=== PATIENT | male | born 1955 | race Caucasian/White ===

== ENCOUNTER 2018-02-19 19:33 | Emergency (ER) | payer OTHER ==
[2018-02-19 19:52] VITALS: BP 122/77
[2018-02-19] MEDS ORDERED: DIAZEPAM 5 MG TAB PO ONE (19:57)
[2018-02-19] MEDS ORDERED: LIDOCAINE 4%/MENTHOL 1% PATCH TD ONE (19:58)
[2018-02-19] MEDS ORDERED: KETOROLAC 30 MG/1 ML SDV IM ONE (19:58)
--- NOTE | 2018-02-19 20:16 | EDPHY ---
H & P Time Seen by Provider: 02/19/18 19:41 HPI/ROS: 62 yo M presents c/o left lumbar back pain that began after trying to move a heavy rock in his yard. No numbness or tingling in extremities, no loss of bowel or bladder control. No fever or chills. Review of systems As per HPI General no fever no chills no weakness HEENT no eye pain no eye discharge. No eye redness, no sore throat Respiratory no cough, no shortness of breath Cardiac no chest pain, no peripheral edema GI no abdominal pain, no diarrhea, no constipation, no nausea, no vomiting no flank pain, no hematuria, no dysuria Musculoskeletal no myalgias, no joint pain, positive back pain Heme no easy bruising, no easy bleeding Endo no polyuria, no polydipsia Skin no rashes, no pruritus Neuro no syncope, no dizziness, no headaches Psych is no suicidal ideation, no homicidal ideation Past Medical/Surgical History: prior hx of back spasm Social History: denies alcohol or drug use Smoking Status: Never smoked Physical Exam: 62 yo M alert and oriented seated on the side of the bed with left lumbar back spasm non toxic appearance, afebrile at,nc neck supple no jvd lungs cta bilat heart rrr abd nabs soft nt back pos left lumbar back spasm,, no midline tenderness, no stepoffs, no ecchymoses,no rash neg slr dtrs present bilat knees able to walk on tiptoes and heels Constitutional: Initial Vital Signs Temperature (C) 36.5 C 02/19/18 19:46 Heart Rate 60 02/19/18 19:46 Respiratory Rate 20 02/19/18 19:46 Blood Pressure 122/77 H 02/19/18 19:46 O2 Sat (%) 96 02/19/18 19:46 O2 Delivery Mode Room Air Allergies/Adverse Reactions: No Known Allergies Allergy (Verified 02/19/18 19:45) Home Medications: Medication Instructions Recorded Diazepam [Valium 5 MG (*)] 5 mg PO TID PRN #15 tab 02/19/18 Lidocaine [Lidoderm] 1 each TP DAILY #14 adh..patch 02/19/18 traMADol [Ultram 50 mg (*)] 50 mg PO Q6 PRN #20 tab 02/19/18 Medical Decision Making ED Course/Re-evaluation: pt seen and evaluated for severe back muscle spasm after lifting heavy rock in yard. given diazepam 10 mg po tordol 60 mg IM and lidoderm patch pt with some relief , requesting discharge oracio to go to pharmacy Imp back muscle spasm plan discharge home rx diazepam 5 mg po tid #15 rx tramadol 50 mg q6 prn pain #16 rx lidoderm patches f/u pcp Differential Diagnosis: Differential diagnosis considered but not limited to: Lumbar muscle spasm, lumbar disc herniation - Data Points Medications Given: Discontinued Medications Diazepam (Valium) 10 mg PO EDNOW ONE Stop: 02/19/18 19:58 Last Admin: 02/19/18 20:04 Dose: 10 mg Ketorolac Tromethamine (Toradol) 60 mg IM EDNOW ONE Stop: 02/19/18 19:59 Last Admin: 02/19/18 20:07 Dose: 60 mg Miscellaneous Medication (Icy Hot Lidocaine/Menthol 4%/1% Patch) 1 patch TD EDNOW ONE Stop: 02/19/18 19:59 Last Admin: 02/19/18 20:05 Dose: 1 patch Departure - Departure Disposition: Home, Routine, Self-Care Clinical Impression: Lumbar back pain Condition: Good Instructions: Low Back Strain (ED), Muscle Spasm (ED) Additional Instructions: See your primary care doctor if not markedly improved in the next 3-5 days. Referrals: Jael Lloyd MD [Primary Care Provider] - As per Instructions Prescriptions: Diazepam [Valium 5 MG (*)] 5 mg PO TID PRN #15 tab PRN Reason: Spasms Lidocaine [Lidoderm] 1 each TP DAILY #14 adh..patch traMADol [Ultram 50 mg (*)] 50 mg PO Q6 PRN #20 tab PRN Reason: *Pain, Inflammatory
[2018-02-19] MEDS ORDERED: PATCH REMOVAL 1 EA PATCH TD SCH (21:00)
== END 2018-02-19 20:25 | disposition home or self-care (01) ==
LOC: CED 19:33
DX: S39.92XA Unspecified injury of lower back, initial encounter (principal); X58.XXXA Exposure to other specified factors, initial encounter; Y92.007 Garden or yard of unspecified non-institutional (private) residence as the place of occurrence of the external cause
CPT/HCPCS: J1885